=== PATIENT | female | born 1995 | race African-American/Black ===

== ENCOUNTER 2019-03-09 22:24 | Emergency (ER) | payer OTHER ==
[~2019-03-09] VITALS: Ht 165.1 cm; Wt 81.6 kg
--- NOTE | 2019-03-09 22:39 | NUR ---
ED Nurse Note: pt brought in by ambulance c/o left-mid sternal chest pain denies radiation x 3 days intermittenly, pt reports she has been under a lot of stress lately, and reports shes been anxious. pt vss, no sx sob at this time, will cont monitor. pt's daughters at the bedside, pt AA&ox4, gcs=15, ambulatory w/ steady gait, LS=clear.
[2019-03-09 22:41] VITALS: BP 118/78
--- NOTE | 2019-03-09 23:18 | NUR ---
ED Nurse Note: pt refused pain medication, ERMD notified.
--- NOTE | 2019-03-09 23:35 | Emergency Room Report ---
History of Present Illness General Chief Complaint: Chest Pain Source: Patient Present Illness HPI This is a 23-year-old female with history anxiety. She says she is in a lot of stress. She presents for complaint of chest pain and back pain. No nausea no vomiting. Onset for last couple days. Denies any other complaint. She came by 911. Pain is 7 out of 10. Worse with stressors. Allergies: Coded Allergies: No Known Allergies (Unverified , 03/09/19) Patient History Past Medical History: see triage record, old chart reviewed, psych hx Past Surgical History: none Pertinent Family History: none Social History: Denies: smoking Last Menstrual Period: 01/28/19 Now: No Immunizations: other Reviewed Nursing Documentation: PMH: Agreed; PSxH: Agreed Nursing Documentation-PMH Past Medical History: No Stated History Review of Systems Eye: Denies: eye pain, blurred vision ENT: Denies: ear pain, nose congestion, throat swelling Respiratory: Denies: cough, shortness of breath Cardiovascular: Reports: chest pain; Denies: palpitations Gastrointestinal: Denies: abdominal pain, diarrhea, nausea, vomiting Musculoskeletal: Reports: back pain; Denies: joint pain Skin: Denies: rash Neurological: Denies: headache, numbness Endocrine: Denies: increased thirst, increased urine Hematologic/Lymphatic: Denies: easy bruising All Other Systems: negative except mentioned in HPI Physical Exam Vital Signs Date Time Temp Pulse Resp B/P (MAP) Pulse Ox O2 Delivery O2 Flow Rate FiO2 03/09/19 22:25 98.2 85 20 116/78 (91) 98 Room Air Vitals normal Sp02 EP Interpretation: reviewed, normal General Appearance: well appearing, no apparent distress, alert Head: normocephalic, atraumatic Eyes: bilateral eye PERRL, bilateral eye EOMI ENT: hearing grossly normal, normal pharynx Neck: full range of motion, supple, no meningismus Respiratory: chest non-tender, lungs clear, normal breath sounds Cardiovascular #1: regular rate, rhythm, no murmur Gastrointestinal: normal bowel sounds, non tender, no mass, no organomegaly, no bruit, non-distended Musculoskeletal: back normal, gait/station normal, normal range of motion Psychiatric: mood/affect normal Medical Decision Making Diagnostic Impression: Primary Impression: Stress reaction ER Course Presents with a stress reaction. No evidence of any equal dissection. No evidence of any CHF. Will discharge home. EKG Diagnostic Results Rate: normal Rhythm: NSR ST Segments: no acute changes Last Vital Signs Date Time Temp Pulse Resp B/P (MAP) Pulse Ox O2 Delivery O2 Flow Rate FiO2 03/09/19 22:41 85 20 Room Air 03/09/19 22:41 98.2 118/78 98 Status: improved Disposition: HOME, SELF-CARE Condition: Stable Additional Instructions: Follow-up with your doctor in 7 days. Return if symptoms worsen. Pernell Samuels MD Mar 09, 2019 23:35
[2019-03-09 23:45] VITALS: BP 116/75
--- NOTE | 2019-03-09 23:45 | NUR ---
ED Nurse Note: pt provided uber by charge nurse.
--- NOTE | 2019-03-09 23:45 | NUR ---
ED Nurse Note: pt cleared to be d/c per ERMD, pt discharge and aftercare instruction provided, pt education done, pt advised to follow up with pcp or return to ed if changes in condition, pt verbalized understanding, vss, ambulatory w/steady gait, left w/ all belongings.
--- NOTE | 2019-03-10 16:35 | Cardiology Report ---
APPROVED REPORT EKG Measurement Heart [id number] Normal sinus rhythm Normal ECG
== END 2019-03-09 23:45 | disposition home or self-care (01) ==
LOC: EDBD 22:24 → EMR 22:41
DX: F43.9 Reaction to severe stress, unspecified (principal); R07.9 Chest pain, unspecified; M54.9 Dorsalgia, unspecified
CPT/HCPCS: 93005; 99283